=== PATIENT | female | born 1940 | race Caucasian/White ===

== ENCOUNTER → 2024-03-30 14:39 | Outpatient (REF) | payer MEDICARE, OTHER, SELFPAY ==
[2024-03-30 16:47] LABS: ALT (SGPT) 24 U/L (0-35); AST (SGOT) 23 U/L (14-36); Alkaline Phosphatase 77 U/L (38-126); Blood Urea Nitrogen 34 mg/dl (7-17); Calcium 9.4 mg/dl (8.4-10.2); Carbon Dioxide 29 mmol/L (22-30); Chloride 99 mmol/L (98-107); Glucose 137 mg/dl (70-99); HDL Cholesterol 44 mg/dl; LDL Cholesterol, Calculated 146 mg/dl; Potassium 4.7 mmol/L (3.5-5.1); Sodium 134 mmol/L (135-145); Total Bilirubin 0.7 mg/dl (0.2-1.3); Total Cholesterol 214 mg/dl (50-199); Total Protein 6.6 g/dl (6.3-8.2); Triglyceride 120 mg/dl (10-149); Very Low Density Lipoprotein 24 mg/dl (0-30); eGFR > 60.00
[2024-03-30 17:04] LABS: Free T3 3.09 pg/ml (2.77-5.27); Free T4 1.76 ng/dl (0.78-2.19)
[2024-03-30 17:17] LABS: TSH 0.19 uIU/ml (0.47-4.68)
[2024-03-30 17:52] LABS: Microalbumin, Random Urine < 0.6 mg/dl (0.6-1.7)
[2024-03-30 17:54] LABS: Folate > 20.0 ng/ml (2.76-20); Vitamin B12 924 pg/ml (239-931)
[2024-03-31 09:26] LABS: Glycohemoglobin (HgbA1c) 7.4 % (4.0-5.6)
[2024-04-01 18:11] LABS: Total T3 (Sendout) 78 ng/dL (80-200)
== END ==
LOC: REG 14:39
PROVIDERS: ATTENDING PHYSICIAN Family Medicine
DX: E11.9 Type 2 diabetes mellitus without complications (principal); E72.11 Homocystinuria; E78.2 Mixed hyperlipidemia; E89.0 Postprocedural hypothyroidism
CPT/HCPCS: 36415; 80053; 80061; 82043; 82570; 82607; 82746; 83036; 83525; 84439; 84443; 84480; 84481

== ENCOUNTER → 2024-05-03 14:21 | Outpatient (REF) | payer MEDICARE, OTHER, SELFPAY | LOC: RAD 14:21 | PROVIDERS: ATTENDING PHYSICIAN Family Medicine | DX: E72.11 Homocystinuria (principal); E78.2 Mixed hyperlipidemia; I48.0 Paroxysmal atrial fibrillation; I50.32 Chronic diastolic (congestive) heart failure | CPT/HCPCS: 75571 ==

== ENCOUNTER → 2024-08-08 12:24 | Outpatient (REF) | payer MEDICARE, OTHER, SELFPAY ==
[2024-08-08 13:22] LABS: % Basophils 0.8 % (0-2); % Eosinophils 2.1 % (0-6); % Immature Granulocytes 0.3 % (0-0.5); % Lymphocytes 27.2 % (20.5-51.1); % Monocytes 10.7 % (1.7-9.3); % Neutrophils 58.9 % (42.2-75.2); Absolute Eosinophils 0.1 10^3/uL (0-0.7); Absolute Monocytes 0.4 10^3/uL (0.1-0.6); Absolute Neutrophils 2.3 10^3/uL (1.4-6.5); Hematocrit 35.9 % (37.0-47.0); Hemoglobin 11.7 g/dL (12.0-16.0); Mean Corp Hgb Conc. 32.6 g/dL (33.0-37.0); Mean Corpuscular Hgb 31.1 pg (27.0-31.0); Mean Corpuscular Volume 95.5 fL (81.0-99.0); Mean Platelet Volume 10.2 fL (7.4-10.4); Nucleated Red Blood Cells % 0 %; Platelet Count 236 10^3/uL (130-400); Red Blood Cell Count 3.76 10^6/uL (4.20-5.40); Red Cell Dist. Width 13.3 % (11.5-14.5); White Blood Cell Count 3.8 10^3/uL (4.8-10.8)
[2024-08-08 13:51] LABS: ALT (SGPT) 22 U/L (0-35); AST (SGOT) 22 U/L (14-36); Albumin 4.3 g/dl (3.5-5.0); Alkaline Phosphatase 68 U/L (38-126); Blood Urea Nitrogen 31 mg/dl (7-17); Calcium 9.8 mg/dl (8.4-10.2); Carbon Dioxide 29 mmol/L (22-30); Chloride 96 mmol/L (98-107); Glucose 143 mg/dl (70-99); Potassium 4.5 mmol/L (3.5-5.1); Sodium 138 mmol/L (135-145); Total Bilirubin 0.7 mg/dl (0.2-1.3); Total Protein 7.1 g/dl (6.3-8.2); eGFR > 60.00
[2024-08-08 14:10] LABS: Free T3 2.97 pg/ml (2.77-5.27); Free T4 1.95 ng/dl (0.78-2.19)
[2024-08-08 14:36] LABS: Glycohemoglobin (HgbA1c) 7.7 % (4.0-5.6)
[2024-08-10 18:06] LABS: Insulin, Random 2 uIU/mL
== END ==
LOC: REG 12:24
PROVIDERS: ATTENDING PHYSICIAN Family Medicine; OTHER PHYSICIAN Internal Medicine Cardiovascular Disease; OTHER PHYSICIAN Nurse Practitioner Gerontology
DX: E11.9 Type 2 diabetes mellitus without complications (principal); E72.11 Homocystinuria; E89.0 Postprocedural hypothyroidism
CPT/HCPCS: 36415; 80053; 83036; 83090; 83525; 84439; 84443; 84480; 84481; 85025

== ENCOUNTER 2024-10-25 19:36 | Inpatient (IN) | payer MEDICARE, OTHER, SELFPAY ==
[2024-10-24] VITALS (7 sets, daily range): BP systolic 114–182; BP diastolic 73–95; BMI 23.0
[2024-10-24 12:33] LABS: Glucose - Point of Care 136 mg/dl (70-99)
[2024-10-24 12:57] LABS: % Basophils 0.9 % (0-2); % Eosinophils 1.8 % (0-6); % Immature Granulocytes 0.2 % (0-0.5); % Monocytes 12.1 % (1.7-9.3); Absolute Eosinophils 0.1 10^3/uL (0-0.7); Absolute Monocytes 0.6 10^3/uL (0.1-0.6); Absolute Neutrophils 2.9 10^3/uL (1.4-6.5); Hematocrit 38.6 % (37.0-47.0); Hemoglobin 12.4 g/dL (12.0-16.0); Mean Corp Hgb Conc. 32.1 g/dL (33.0-37.0); Mean Corpuscular Volume 96.5 fL (81.0-99.0); Mean Platelet Volume 9.8 fL (7.4-10.4); Nucleated Red Blood Cells % 0 %; Platelet Count 225 10^3/uL (130-400); Red Cell Dist. Width 13.2 % (11.5-14.5); White Blood Cell Count 4.5 10^3/uL (4.8-10.8)
[2024-10-24 13:14] LABS: ALT (SGPT) 33 U/L (0-35); AST (SGOT) 29 U/L (14-36); Albumin 4.2 g/dl (3.5-5.0); Alkaline Phosphatase 72 U/L (38-126); Blood Urea Nitrogen 18 mg/dl (7-17); Calcium 9.1 mg/dl (8.4-10.2); Carbon Dioxide 26 mmol/L (22-30); Chloride 102 mmol/L (98-107); Glucose 135 mg/dl (70-99); Potassium 4.1 mmol/L (3.5-5.1); Sodium 136 mmol/L (135-145); Total Bilirubin 0.7 mg/dl (0.2-1.3); eGFR > 60.00
--- NOTE | 2024-10-24 16:48 | ED.GENMED ---
History of Present Illness
<Elke Kemp PA-C - Last Filed: 10/25/24 01:50>
General
Chief Complaint: Change in Mental Status
Source: patient and family (Patient's daughter at bedside providing history)
Exam Limitations: altered mental status
Time Seen by Provider: 10/24/24 16:27
Nursing documentation reviewed up to this point in time: agreed with
History of Present Illness
History of Present Illness:
Patient is an 84-year-old female with history atrial fibrillation on Eliquis, CHF, hypertension, hyperlipidemia, diabetes presenting to the emergency department with daughter for evaluation of altered mental status. Patient is unable to contribute
much to history given altered mental status although does deny any current complaints including headache, chest pain, shortness of breath. Patient's daughter reports that she last saw her mom at her baseline on Thursday morning. By the time she
spoke to her mom on the phone Thursday her mom appeared altered. Patient's daughter states that she remained confused throughout the day yesterday and into today prompting the visit to the emergency department. Patient's daughter does think
that her mom may be urinating a little bit less than usual and is concerned about a possible UTI. She does not believe that her mom took her medications appropriately over the past few days
There is no known history of trauma or falls.
Patient does live in independent living and currently is able to perform all ADLs, IADLs without assistance.
Review of Systems
<Elke Kemp PA-C - Last Filed: 10/25/24 01:50>
Review of Systems
Allergies reviewed?: Yes
All Other Systems: ROS reviewed and negative except as documented in HPI and ROS
Phy Exam
<Elke Kemp PA-C - Last Filed: 10/25/24 01:50>
Physical Exam
Physical Exam:
Vitals: Hypertensive, otherwise stable vital signs. Afebrile
General: Patient is well appearing, no acute distress
Skin: Warm and dry, no rashes or lesions
Head: Normocephalic, atraumatic
Eyes: Sclera nonicteric. Pupils equal round and reactive light bilaterally. EOMs intact. No nystagmus.
Throat: Protecting airway
Neck: Normal ROM, no cervical spine tenderness, no meningismus
Cardiac: Regular rate and rhythm, no murmurs.
Pulm: Normal respiratory effort, no wheezes, rales, rhonchi heard on exam.
Abdomen: Abdomen soft no abdominal tenderness.
Extremities: No evidence of cyanosis or edema. Strength 5 out of 5 in upper and lower extremities.
Neuro: AAOx [address], not time. No focal neurologic deficits. Fluid speech. Steady gait. Sensation fully intact
Psychiatric: Normal affect.
Scores
<Elke Kemp PA-C - Last Filed: 10/25/24 01:50>
NIH Stroke Score
Level of Consciousness: 0 - Alert
LOC Questions: 1-Answers one correctly
LOC Commands: 0-Performs both correctly
Best Horizontal Gaze: 0-Normal
Visual Hogan: 0=Normal, no visual loss
Facial Palsy: 0=Normal, symmetrical
Motor - Right Arm: 0=No drift 10 seconds
Motor - Left Arm: 0=No drift 10 seconds
Motor - Right Le-No drift 5 seconds
Motor - Left Le-No drift 5 seconds
Limb Ataxia: 0-Absent
Sensation: 0-Normal
Best Language: 0-No aphasia
Dysarthria: 0-Normal
Extinction and Inattention: 0-No abnormality
Total Score:: 1
Course
<Elke Kemp PA-C - Last Filed: 10/25/24 01:50>
Orders/Labs/Results
Orders:
Orders
10/24/24 12:36
Complete Blood Count/With Diff Urgent
Comprehensive Metabolic Panel Urgent
10/24/24 16:49
Electrocardiogram (*1) Urgent
Reason for Study: Fatigue / Weakness
CT Head W/o Iv Contrast Urgent
Comment:
Reason For Exam: AMS on eliquis
EKG- Treatment ONCE
Straight cath- Treatment ONCE
10/24/24 17:09
COVID-19 Antigen Urgent
Source: Nasal Swab
NT-proBNP Urgent
Troponin I Urgent
Influenza A+B Rapid Molecular Urgent
QUOC Source: Nasal Swab
Specimen Description:
10/24/24 17:13
Urinalysis Reflex To Culture Urgent
Date Specimen was Collected: 10/24/24
Time Specimen was Collected: 12:33
10/24/24 19:56
Aspirin Chewable [Low Strength Aspirin] 81 mg PO NOW STA
10/24/24 21:06
Admit/Transfer Patient As Directed
Co-Sign Provider:
Level of Care: Observation services
Assign to:: Telemetry
Physician / Group: Deep Flor
Diagnosis: change in mental status
Reason for Telemetry: CVA/TIA
Date to Stop Telemetry: 10/27/24
Time to Stop Telemetry: 11:00
PRN Pain Medication Management As Directed
May give lesser potent ordered pain med per pt: Yes
preference::
Protocol:: Medication orders for pain may be administered in a
manner that supports deferring to patient preference
when the pt is:
- Requesting an ordered lesser potent pain medication.
Least to most potent pain medications are defined
as: acetaminophen < NSAID < tramadol < opioids
(morphine, oxycodone, hydromorphone).
- Requesting a lesser dose of the same medication IF
ORDERED.
- Requesting a less intrusive route of administration
if both routes are prescribed by the provider (PO <
IV).
10/24/24 21:07
Code Status As Directed
Resuscitation Status: Do not resuscitate
Based on pt advanced directive or healthcare POA form: Yes
Decision communicated with: daughter and patient
DNR Bracelet Application ONCE
10/24/24 22:40
Acetaminophen [Tylenol] 650 mg PO Q4HPRN PRN
10/24/24 22:40
Case Management Consult ONCE
Case Management Consult: Discharge Planning
Comment: stroke/tia
NEUROLOGY CONSULT Urgent
Consulting Provider: Griselda Hui
Was physician already notified: Yes
MR Brain Without Contrast Routine
Comment:
Reason For Exam: stroke/TIA
Recent pill cam endoscopy?: No
Activity As Directed
Activity Level: Out of Bed-Early Mobility
NIH Stroke Scale As Directed
Directions: Per protocol
Comment: every shift and with any change in condition or mental status
Neurological Checks As Directed
Frequency: q4h
Additional Instructions:: q4h x 24h upon admission to the floor, then qshift & with any change in condition
and mental status
Patient Education As Directed
Type: Stroke education packet
Comment: provide to patient and family
Pneumatic Compression Sleeves As Directed
Type: Knee high
Swallow Screening CVA/TIA ONLY As Directed
Comment: NPO until swallowing screening completed
If patient FAILS swallow screening:: NPO, Speech Therapy consult, Aspiration Precautions
If patient PASSES swallow screening, diet:: Cholesterol Lowering
Sodium, 2 Gram
Above diet order entered?: Yes- passed screening
Vital Signs As Directed
Frequency: Per unit guidelines
Weight As Directed
Frequency: Daily
Ot Eval And Treat Routine
Pt Eval And Treat Routine
Activity Level: Out of Bed-Early Mobility
Speech Therapy Eval & Treat Routine
DX Deep Vein Thrombosis Video Routine
10/24/24 23:41
Type+Screen Routine
Erythrocyte Sed Rate Routine
Glycohemoglobin (HgbA1c) Routine
10/25/24 06:00
Cardiovascular Evaluation IN AM
PTT IN AM
Prothrombin Time IN AM
Levothyroxine [Synthroid] 125 mcg PO DAILY @ 0600
10/25/24 08:00
Aspirin Chewable [Low Strength Aspirin] 81 mg PO DAILY
Bisoprolol Fumarate [Zebeta] 2.5 mg PO DAILY
Rosuvastatin Calcium [Crestor] 10 mg PO DAILY
10/25/24 18:00
Torsemide [Demadex] 20 mg PO QPM
10/27/24 11:00
DC Protocol for Telemetry ONCE
Abnormal Lab Results
10/24/24 10/24/24 10/24/24
12:30 12:36 17:13
WBC 4.5 L 10^3/uL
(4.8-10.8)
RBC 4.00 L 10^6/uL
(4.20-5.40)
MCHC 32.1 L g/dL
(33.0-37.0)
Absolute Lymphs (auto) 1.0 L 10^3/uL
(1.2-3.4)
Monocytes % 12.1 H %
(1.7-9.3)
BUN 18 H mg/dl
(7-17)
Glucose 135 H mg/dl
(70-99)
Urine Ketones Trace A
(Negative)
Urine Glucose 2+ A
(Negative)
POC Glucose 136 H mg/dl
(70-99)
10/24/24 12:36
10/24/24 12:36
Vital Signs
Initial and Last Documented VS:
Initial Vital Signs
Temp Pulse Resp BP Pulse Ox
98.1 F 88 16 160/80 98
10/24/24 12:24 10/24/24 12:24 10/24/24 12:24 10/24/24 12:24 10/24/24 12:24
Last Documented Vital Signs
Temp Pulse Resp BP Pulse Ox
98.1 F 74 13 143/76 92
10/24/24 12:24 10/25/24 01:00 10/25/24 01:00 10/25/24 01:00 10/25/24 01:00
<Ruy Stallworth MD - Last Filed: 10/24/24 21:11>
Orders/Labs/Results
Orders:
Orders
10/24/24 12:36
Complete Blood Count/With Diff Urgent
Comprehensive Metabolic Panel Urgent
10/24/24 16:49
Electrocardiogram (*1) Urgent
Reason for Study: Fatigue / Weakness
CT Head W/o Iv Contrast Urgent
Comment:
Reason For Exam: AMS on eliquis
EKG- Treatment ONCE
Straight cath- Treatment ONCE
10/24/24 17:09
COVID-19 Antigen Urgent
Source: Nasal Swab
NT-proBNP Urgent
Troponin I Urgent
Influenza A+B Rapid Molecular Urgent
QUOC Source: Nasal Swab
Specimen Description:
10/24/24 17:13
Urinalysis Reflex To Culture Urgent
Date Specimen was Collected: 10/24/24
Time Specimen was Collected: 12:33
10/24/24 19:56
Aspirin Chewable [Low Strength Aspirin] 81 mg PO NOW STA
10/24/24 21:06
Admit/Transfer Patient As Directed
Co-Sign Provider:
Level of Care: Observation services
Assign to:: Telemetry
Physician / Group: Deep Flor
Diagnosis: change in mental status
Reason for Telemetry: CVA/TIA
Date to Stop Telemetry: 10/27/24
Time to Stop Telemetry: 11:00
PRN Pain Medication Management As Directed
May give lesser potent ordered pain med per pt: Yes
preference::
Protocol:: Medication orders for pain may be administered in a
manner that supports deferring to patient preference
when the pt is:
- Requesting an ordered lesser potent pain medication.
Least to most potent pain medications are defined
as: acetaminophen < NSAID < tramadol < opioids
(morphine, oxycodone, hydromorphone).
- Requesting a lesser dose of the same medication IF
ORDERED.
- Requesting a less intrusive route of administration
if both routes are prescribed by the provider (PO <
IV).
10/24/24 21:07
Code Status As Directed
Resuscitation Status: Do not resuscitate
Based on pt advanced directive or healthcare POA form: Yes
Decision communicated with: daughter and patient
DNR Bracelet Application ONCE
10/24/24 22:40
Acetaminophen [Tylenol] 650 mg PO Q4HPRN PRN
10/24/24 22:40
Case Management Consult ONCE
Case Management Consult: Discharge Planning
Comment: stroke/tia
NEUROLOGY CONSULT Urgent
Consulting Provider: Griselda Hui
Was physician already notified: Yes
MR Brain Without Contrast Routine
Comment:
Reason For Exam: stroke/TIA
Recent pill cam endoscopy?: No
Activity As Directed
Activity Level: Out of Bed-Early Mobility
NIH Stroke Scale As Directed
Directions: Per protocol
Comment: every shift and with any change in condition or mental status
Neurological Checks As Directed
Frequency: q4h
Additional Instructions:: q4h x 24h upon admission to the floor, then qshift & with any change in condition
and mental status
Patient Education As Directed
Type: Stroke education packet
Comment: provide to patient and family
Pneumatic Compression Sleeves As Directed
Type: Knee high
Swallow Screening CVA/TIA ONLY As Directed
Comment: NPO until swallowing screening completed
If patient FAILS swallow screening:: NPO, Speech Therapy consult, Aspiration Precautions
If patient PASSES swallow screening, diet:: Cholesterol Lowering
Sodium, 2 Gram
Above diet order entered?: Yes- passed screening
Vital Signs As Directed
Frequency: Per unit guidelines
Weight As Directed
Frequency: Daily
Ot Eval And Treat Routine
Pt Eval And Treat Routine
Activity Level: Out of Bed-Early Mobility
Speech Therapy Eval & Treat Routine
DX Deep Vein Thrombosis Video Routine
10/24/24 23:41
Type+Screen Routine
Erythrocyte Sed Rate Routine
Glycohemoglobin (HgbA1c) Routine
10/25/24 06:00
Cardiovascular Evaluation IN AM
PTT IN AM
Prothrombin Time IN AM
Levothyroxine [Synthroid] 125 mcg PO DAILY @ 0600
10/25/24 08:00
Aspirin Chewable [Low Strength Aspirin] 81 mg PO DAILY
Bisoprolol Fumarate [Zebeta] 2.5 mg PO DAILY
Rosuvastatin Calcium [Crestor] 10 mg PO DAILY
10/25/24 18:00
Torsemide [Demadex] 20 mg PO QPM
10/27/24 11:00
DC Protocol for Telemetry ONCE
Abnormal Lab Results
10/24/24 10/24/24 10/24/24
12:30 12:36 17:13
WBC 4.5 L 10^3/uL
(4.8-10.8)
RBC 4.00 L 10^6/uL
(4.20-5.40)
MCHC 32.1 L g/dL
(33.0-37.0)
Absolute Lymphs (auto) 1.0 L 10^3/uL
(1.2-3.4)
Monocytes % 12.1 H %
(1.7-9.3)
BUN 18 H mg/dl
(7-17)
Glucose 135 H mg/dl
(70-99)
Urine Ketones Trace A
(Negative)
Urine Glucose 2+ A
(Negative)
POC Glucose 136 H mg/dl
(70-99)
10/24/24 12:36
10/24/24 12:36
Vital Signs
Initial and Last Documented VS:
Initial Vital Signs
Temp Pulse Resp BP Pulse Ox
98.1 F 88 16 160/80 98
10/24/24 12:24 10/24/24 12:24 10/24/24 12:24 10/24/24 12:24 10/24/24 12:24
Last Documented Vital Signs
Temp Pulse Resp BP Pulse Ox
98.1 F 74 13 143/76 92
10/24/24 12:24 10/25/24 01:00 10/25/24 01:00 10/25/24 01:00 10/25/24 01:00
<Elke Kemp PA-C - Last Filed: 10/25/24 01:50>
MDM/Problems Addressed
Differential Diagnosis Includes:
Not limited to: Viral illness, UTI, CVA, intra parenchymal hemorrhage, mass, etc.
MDM/Problems Addressed:
84-year-old female presenting with daughter for change in mental status which is suspected to have occurred sometime between Thursday afternoon and Thursday morning. No known trauma. Patient hypertensive on arrival, otherwise stable vital signs.
Physical exam as above. Patient is alert and oriented x 2. Patient clearly confused unable to identify her daughter. Cranial nerves intact. Patient has fluent speech and steady gait. Normal cerebellar exam. Basic labs initiated in triage
without clinically significant abnormalities. Differential broad at this time although concern for possible infectious source versus central process. Will check urinalysis, viral swabs. Will obtain CT head. Anticipate admission.
Update: Urinalysis without signs of infection. Viral swabs negative. EKG without any acute ischemic changes. CT scans does show areas of infarct, old versus subacute. Given acute mental status change�concern that these are subacute infarctions.
Did discuss with neurology who recommends holding Eliquis and giving baby aspirin. Patient will be admitted to hospitalist service for MRI/further evaluation of mental status change.
Chronic conditions affecting care:
Atrial fibrillation on Eliquis, CHF, hypertension
Acute Exacerbation and/or Progression of Chronic Illness:
Acutely hypertensive
<Elke Kemp PA-C - Last Filed: 10/25/24 01:50>
*Radiology
Radiology exam reviewed: radiology read reviewed
*Pulse Oximetry
Patient hypoxic: no
*EKG
Interpreted by ED Provider?: Yes
EKG Intrepretation Date: 10/24/24
Interpretation: normal
Comparison EKG: changes noted
Heart Rate: 82
Rate: normal
Rhythm: sinus
Dorr: normal axis
Interval: normal QT interval
QRS Pattern: normal QRS
Ischemia: no ischemia
*Sales Teacher Interpretation
Rate: normal
Interpretation: normal
Heart Rate: 72
Rhythm: sinus
*Critical Care Note
Total Time (30-74mins, 75-104mins- exclusive of procedures): Not Applicable
<Elke Kemp PA-C - Last Filed: 10/25/24 01:50>
Patient Management
Discussion with other providers: Hospitalist and Dump Worker
Escalation/DeEscalation of care consider admission/obs:
Admit for MRI/further evaluation
ED Attending Note
<Elke Kemp PA-C - Last Filed: 10/25/24 01:50>
-
Portions of this chart may have been created with voice recognition software.� Occasional wrong word or��sound alike� substitutions may have occurred due to the inherent limitations of voice recognition software.
<Ruy Stallworth MD - Last Filed: 10/24/24 21:11>
ED Attending Note
Patient seen and examined by attending physician: Yes
ED Attending Note:
I have seen and evaluated the patient with a [id number] encounter. I have spoken to the advance practicer provider and involved in the medical history, the physical exam, medical decision making.
Evaluation and management service: agree unless noted differently below.
Results interpretation: agree unless noted differently below.
Focused HPI: 84-year-old female with history as documented notable for A-fib, CHF, hypertension, hyperlipidemia, diabetes who presents to the emergency room with her daughter for evaluation of change in mental status. Daughter says that she last
saw her mother normal on he spoke to her on the phone and she seemed to be well. Apparently Thursday she spoke with her mother and noted that she seems confused and disoriented this morning she went to her mother's house and she was still
disoriented and brought her mother to the hospital. Patient is very confused and is very limited as a historian. She denies any pain and says that he feels generally well.
Physical exam: Awake, alert, oriented x 1. She does not appear toxic. Cranial nerves are intact. Motor and sensory function intact and symmetric in all extremities. Her speech is fluid there is no dysarthria or aphasia. She has no cardiac rubs
gallops or murmurs appreciable on exam, rate and rhythm appear regular. Lungs sound clear. Abdomen nontender.
Medical Decision Makin-year-old female presents with a change in mental status seems to have started Thursday although daughter says that she has a notebook from her mother which her mother uses to lock her medications and it is blank for
Thursday evening which indicates that perhaps they may have started Thursday afternoon/evening. Hypertensive otherwise normal vitals. Physical exam as above. Labs were sent off including a CBC and a CMP which showed no clinically significant
abnormalities. Her urinalysis is negative for infection. Negative for COVID and flu. CT head shows infarct which could be old or subacute. Will treat with aspirin, admit for continued evaluation of her mental status changes.
Discharge Plan
Departure
Patient Disposition: Admit
Date of Disposition: 10/24/24
Time of Disposition: 19:57
Presentation/result/management discussed w/ accepting MD/DO: Hospitalist
Discharge Problem:
Altered mental status
Interventions
Interventions:
*Risk Screen - Suicide Last Done: 10/24/24 12:24
*General Assessment Last Done: 10/24/24 23:34
*Neglect/Abuse Screening Last Done: 10/24/24 12:24
*ED COVID-19 Vaccine History Last Done: 10/24/24 23:34
ED- Pulmonary Assessment Last Done: 10/24/24 17:15
ED- Neurological Assessment Last Done: 10/24/24 17:15
ED- Cardiac Assessment Last Done: 10/24/24 17:15
ED Swallowing Screen Last Done: 10/24/24 19:45
[2024-10-24 17:25] LABS: Urine Albumin Trace (Neg - Trace); Urine Bilirubin Negative (Negative); Urine Character Clear (Clear); Urine Color Yellow; Urine Glucose 2+ (Negative); Urine Ketone Trace (Negative); Urine Leukocyte Negative (Negative); Urine Nitrite Negative (Negative); Urine Occult Blood Negative (Negative); Urine Urobilinogen Negative (Neg - 1+)
[2024-10-24 17:53] LABS: NT-proBNP 2430 pg/ml; Troponin I 0.013 ng/ml
[2024-10-24 17:59] LABS: COVID-19 Antigen Negative (Negative)
[2024-10-24] MEDS: LOW STRENGTH ASPIRIN 81 MG PO (19:59)
--- NOTE | 2024-10-24 20:08 | HPS.HSE ---
Addendum entered and electronically signed by Deep Flor DO 10/24/24 22:06:
Patient seen and examined independently. Agree with findings and plan as set forth by ALFONSO Limon.
Patient is an 84y F with PMH significant for A-Fib, hypertension and hypothyroidism who presents to ED for evaluation of mental status change. Patient was in her usual state of health on Thursday when her daughter was in town. Daughter spoke
with the patient via phone since that time an found her to be confused. She returned to [facility] today to evaluate the patient and found her to be significantly altered from baseline. Patient keeps a weight diary at home and there is a distinct change
in hand-writing that occurs on Thursday. On Thursday there are no entries.
Patient was brought to the ED this evening for further evaluation.
CVT scan done in the ED shows multiple areas of decreased density consistent with old or subacute CVAs.
Ass:
Altered Mental Status
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
Paroxysmal Atrial Fibrillation
Benign Hypertension
DM-II
Chronic HFpEF
Hypothyroidism
Plan:
Admit for further evaluation and treatment.
Follow serial neurologic exams.
Add ASA to Eliquis for now and check MRI in the AM.
Neurology evaluation for additional recommendations.
Hold oral DM agents acutely and follow glucose. Update A1C.
Monitor BP and adjust regimen as needed for normotension.
Follow for clinical improvement.
Original Note:
Family Physician
-
Family Physician: Luis Miguel Mejia
Chief Complaint
-
change in mental status
History of Present Illness
Patient is a 84-year-old female with past medical history significant for atrial fibrillation, hypertension, hyperlipidemia, hypothyroidism, diabetes and heart failure who presented to [place] [facility] for evaluation of change in mental status. Patient
and daughter present at assessment, daughter who is a nurse helped with HPI. Patient denies any symptoms at this time or any recently, she is pleasant with no complaints. Daughter states she spent the night with patient on Thursday and left Thursday
to head home in [place]. Daughter states patient is normally very feisty and snarky and her current calm demeanor is new. Patient has a book that she writes her daily weight and time she took her medications, which looks verify uniform for days until
Thursday evening the handwriting worsens and the documentation is limited, no entry on Thursday. Daughter states on Thursday they had talked on phone and her mother was not wearing underwear, reporting she could not find them, and over the phone she
instructed where they were but her mom could still not find them. She spoke with her on Thursday and confusion continued so she returned to the area to bring her for evaluation of potential UTI. She took patient to urgent care where they referred to
ED for continued mental status change and patients inability to provide a urine sample. Patient denies any recent fever, chills, cough, shortness of breath, chest pain, nausea, vomiting, constipation, diarrhea or urinary symptoms.
Medical History
Past Medical History
Past Medical History: Reports Other
Additional Past Medical History:
atrial fibrillation
hypertension
hyperlipidemia
hypothyroidism
diabetes
heart failure
Past Surgical History: Reports Other
Additional Past Surgical History:
right hip replacement
arthroscopic surgery bilateral knees
left breast lumpectomy
thyroid radiation
Social History
Tobacco: Non-smoker
Alcohol: Occasional
Drug: None
Personal:
Living: Alone
Employment: Retired
Family History
Family History: Other (Mother: Alzheimer's; Father: CAD; Sister: DM I)
Allergies / Home Medications
Allergies reflects when Allergies were last updated in [facility].
Home Medications with original date entered in [facility]
Allergy/Medication List:
Allergies
Allergy/AdvReac Type Severity Reaction Status Date / Time
clindamycin AdvReac Unknown Unknown Verified 10/24/24 12:24
Home Medications
apixaban 5 mg tablet (Eliquis) 5 mg PO BID 12/19/21
levothyroxine 125 mcg tablet 125 mcg PO DAILY 12/19/21
metformin 500 mg tablet,extended release 24 hr 2,000 mg PO DAILY 12/19/21
torsemide 20 mg tablet 20 mg PO QPM 01/01/22
bisoprolol fumarate 5 mg tablet 2.5 mg PO DAILY 10/24/24
empagliflozin 10 mg tablet (Jardiance) 10 mg PO DAILY 10/24/24
rosuvastatin 10 mg tablet (Crestor) 10 mg PO DAILY 10/24/24
Review of Systems
-
History Source: Patient
Constitutional: Reports No Symptoms
EENT: Reports No Symptoms
Respiratory: Reports No Symptoms
Cardiac: Reports No Symptoms
Abdomen/GI: Reports No Symptoms
: Reports No Symptoms
Musculoskeletal: Reports No Symptoms
Skin: Reports No Symptoms
Neurological: Reports No Symptoms
Endocrine: Reports No Symptoms
Hematologic/Lymphatic: Reports No Symptoms
Psych: Reports No Symptoms
Physical Exam
Vital Signs
Vital Signs
Temp Pulse Resp BP Pulse Ox
98.1 F 77 16 182/91 95
10/24/24 12:24 10/24/24 19:30 10/24/24 19:30 10/24/24 19:01 10/24/24 19:30
Physical Exam
General: Well Developed, Well Nourished, No Apparent Distress, Comfortable and Conversant
HEENT: NormoCephalic, Moist mucous membranes, Atraumatic, [place] Conjunctivae, Nose Appears Normal and Ears Appear Normal
Respiratory: Clear and Non Labored Respirations
Cardiac: S1/S2 and Regular Rhythm; No Murmur, Rub or Gallop
Breast: Deferred by me
GI: Soft, Non Tender, Non Distended and Normal Bowel Sounds; No Organomegaly
Rectal: Deferred by Provider
Genito-urinary: Deferred by me
Musculoskeletal: No Clubbing, No Cyanosis and No Edema
Skin: Warm and IV/Catheter Site; No Rash
Neuro: Awake, Alert and Nonfocal/grossly intact
Psych: Calm and Confused
Laboratory Results
-
10/24/24 12:36
10/24/24 12:36
Laboratory Results
Total Bilirubin 0.7 mg/dl (0.2-1.3) 10/24/24 12:36
AST 29 U/L (14-36) 10/24/24 12:36
ALT 33 U/L (0-35) 10/24/24 12:36
Alkaline Phosphatase 72 U/L (38-126) 10/24/24 12:36
Troponin I 0.013 ng/ml 10/24/24 17:09
Data Reviewed
-
CT Scan: Report Reviewed by me (Head: Focal areas of decreased density as described, most suggestive of old areas of infarction. With no comparison examination available, subacute areas of infarction not completely excluded. If there is high
clinical concern for acute to subacute infarction and further imaging evaluation is desire)
Medical Tests (Nuc Med, Echo, EKG etc): Report Reviewed by me (EKG: SINUS RHYTHM WITH PREMATURE SUPRAVENTRICULAR COMPLEXES OTHERWISE NORMAL ECG)
Lab Data: Labs Reviewed by me
Impression/Plan
-
IMPRESSION/PLAN:
#change in mental status
UA: negative for UTI
Head CT: Focal areas of decreased density as described, most suggestive of old areas of infarction. With no comparison examination available, subacute areas of infarction not completely excluded. If there is high clinical concern for acute to
subacute
infarction and further imaging evaluation is desired, consider MRI the brain, if there are no contraindications.
No evidence for acute intracranial hemorrhage.
- Admit to telemetry
- consult neurology
- NIH/neuro checks
- MRI in morning
#atrial fibrillation
- monitor on telemetry
- hold Eliquis
#hypertension
- continue torsemide
#hyperlipidemia
- continue rosuvastatin
#hypothyroidism
- continue levothyroxine
#diabetes
- continue Jardiance and metformin
#heart failure
- daily weights
- continue torsemide
Code status: DNR
DVT prophylaxis: SCDs
[2024-10-24 23:57] LABS: Erythrocyte Sed Rate 20 mm/hour (0-20)
[2024-10-25] VITALS (24 sets, daily range): BP systolic 120–189; BP diastolic 67–151; PULSE 68–73; O2SAT 98–100; BMI 20.7
[2024-10-25] MEDS: SYNTHROID 125 MCG PO (05:53)
[2024-10-25 06:47] LABS: INR 0.95
[2024-10-25 06:58] LABS: HDL Cholesterol 46 mg/dl; LDL Cholesterol, Calculated 94 mg/dl; Total Cholesterol 165 mg/dl (50-199); Triglyceride 127 mg/dl (10-149); Very Low Density Lipoprotein 25 mg/dl (0-30)
--- NOTE | 2024-10-25 07:23 | CON.NEURO ---
Consultation
Order
Date of Consultation: 10/25/24
Requesting Provider: Asya Mi CRNP
Reason for Consult: encephalopathy
Neurology Consultation Note.
HPI: This is an 84-year-old right-handed woman who presented to [facility] ([place], [place]) on 10/24/2024 with encephalopathy. According to patient's daughter Ms. Alanna Quispe who resides in [place], she noted her mother to be confused during their
regular phone conversation on 10/23/2024. Last time her mother seemed to be in usual state of health[facility], October [facility], 2024 morning.
The patient is unable to provide the history. She denies having headache, change in vision, weakness or numbness.
Ms. Virgen has a history of atrial fibrillation and was Eliquis prior the admission. She reportedly occasionally forgot to take her medications, but maintained a meticulous record of her medication administration. Prior to this episode, the
patient was independent, managing her own finances and driving locally. Notably, the patient is not currently complaining of her usual back and joint pain.
ER VS:160/80-189/83, 84, afebrile
PDMP:none
Labs: LDL 94, unremarkable urinalysis
CT head wo contrast-left thalamic hypodensity, atrophy.
PMH: A-Fib, HTN, PSVT, DLP, DM, h/o hyperthyroidism(s/p RT), hypothyroidism, OA, Varicose veins of bilateral lower extremities, gout
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
FH:mother-AD in her late 90s
All:Clindamycin
ROS:limited due to aphasia
General: Well developed. In no acute distress.
Cardio: Regular rate and rhythm without murmur. Extremities are without cyanosis or edema.
Neuro:
Mental Status: Alert, oriented to name, age. Expressive greater than receptive aphasia. Follows simple requests. Impaired attention, comprehension, calculation
Cranial Nerves: Pupils are equally round, surgical.. EOMs full. Blink to threat bilaterally. No ptosis. No nystagmus. V1-V3 intact to light touch and pinprick bilaterally, symmetric. Face symmetric. Normal hearing AU. The palate elevated
well. SCMs and traps 5/5. Tongue midline. No dysarthria.
Motor: No pronator or leg drift.
Reflexes: Negative Pritchett's and plus bilaterally
Sensory: Limited exam due to poor attention
Coordination: No dysmetria or tremor.
Gait: deferred
Assessment and Plan:
I. Probable left subacute thalamic stroke with thalamic aphasia.
II. Mixed encephalopathy
III. Paroxysmal A-fib
-Continue Telemetry monitoring
-Restart antihypertensive medications during if BP>140/90 mmHg who are neurologically stable in 24 to 48 hours after stroke onset
-TTE
-Please check TFTs
-Continue aspirin 81 mg once a day. Continue to hold Eliquis until brain MRI is completed. .
-Lipitor 40 mg QHS.
-Please check HbA1C
-CTA head and neck
-Routine EEG if brain MRI showed no acute or subacute infarct
-Speech therapy
-PT.
-DVT prophylaxis.
I personally reviewed all radiology and labs along with past medical records pertinent to current medical problems. Total time spent in patient care is 60 minutes.
Thank you for allowing us to participate in the care of this patient. We will continue to follow. Please do not hesitate to contact us with any questions or concerns.
Subjective/Objective
Subjective Data
Date of Service: October 25, 2024
Objective Data
Vital Signs
Temp Pulse Resp BP Pulse Ox
36.7 C 82 29 189/83 98
10/24/24 12:24 10/25/24 06:45 10/25/24 06:45 10/25/24 06:05 10/25/24 06:30
Lab Results
10/24/24 12:36
10/24/24 12:36
Sodium 136 mmol/L (135-145) 10/24/24 12:36
Potassium 4.1 mmol/L (3.5-5.1) 10/24/24 12:36
BUN 18 mg/dl (7-17) H 10/24/24 12:36
Glucose 135 mg/dl (70-99) H 10/24/24 12:36
Calcium 9.1 mg/dl (8.4-10.2) 10/24/24 12:36
Ljq-O-Ybcpbcgodjf Pept 2430 pg/ml 10/24/24 17:09
LDL Cholesterol, Calc 94 mg/dl 10/25/24 05:56
Patient Allergies
clindamycin Allergy (Verified 10/24/24 21:47)
CDIFF
Medications
-
Active Medications
Generic Name Dose Route Start Last Admin
Trade Name Freq PRN Reason Stop Dose Admin
Acetaminophen 650 mg 10/24/24 22:40
Acetaminophen 325 Mg Tablet PO 11/21/24 22:39
Q4HPRN PRN
RODRIGUEZ, mild pain, or temp >100.4F
Apixaban 5 mg 10/25/24 08:00
Apixaban (Eliquis) 5 Mg Tablet PO 11/22/24 07:59
BID SARAH
Aspirin 81 mg 10/25/24 08:00
Aspirin 81 Mg Chewable Tablet PO 11/22/24 07:59
DAILY SARAH
Bisoprolol Fumarate 2.5 mg 10/25/24 08:00
Bisoprolol Fumarate (Zebeta) 5 Mg Tablet PO 11/22/24 07:59
DAILY SARAH
Dextrose 12.5 grams 10/24/24 22:40
Dextrose 50% (0.5 Grams/Ml) 50 Ml Syringe IV 11/21/24 22:39
[id number] PRN
hypoglycemia
Protocol
Glucagon 1 mg 10/24/24 22:40
Glucagon 1 Mg Vial IM 11/21/24 22:39
PRN PRN
hypoglycemia
Protocol
Hydralazine HCl 5 mg 10/25/24 06:27
Hydralazine 20 Mg/Ml Vial IV 11/22/24 06:26
Q4HPRN PRN
sbp>170
Insulin Aspart 0 units 10/25/24 07:30
Insulin Aspart Low Resistance 300 Units/3 Ml Pen.Injctr SC 11/22/24 07:29
AC SARAH
Protocol
Levothyroxine Sodium 125 mcg 10/25/24 06:00 10/25/24 05:53
Levothyroxine 125 Mcg Tablet PO 11/22/24 05:59 125 mcg
DAILY @ 0600 SARAH Administration
Rosuvastatin Calcium 10 mg 10/25/24 08:00
Rosuvastatin (Crestor) 10 Mg Tablet PO 11/22/24 07:59
DAILY SARAH
Sodium Chloride 0 flush 10/24/24 23:00
Sodium Chloride 0.9% (Flush) Syringe IV 11/21/24 22:59
PER PROTOCOL SARAH
Torsemide 20 mg 10/25/24 18:00
Torsemide 20 Mg Tablet PO 11/22/24 17:59
QPM SARAH
Home Medications
�Medication �Instructions �Recorded
apixaban 5 mg tablet (Eliquis) 5 mg PO BID 12/19/21
levothyroxine 125 mcg tablet 125 mcg PO DAILY 12/19/21
metformin 500 mg tablet,extended 2,000 mg PO DAILY 12/19/21
release 24 hr
torsemide 20 mg tablet 20 mg PO QPM 01/01/22
bisoprolol fumarate 5 mg tablet 2.5 mg PO DAILY 10/24/24
empagliflozin 10 mg tablet 10 mg PO DAILY 10/24/24
(Jardiance)
rosuvastatin 10 mg tablet (Crestor) 10 mg PO DAILY 10/24/24
Vital Signs and Labs
-
Vital Signs and Labs:
Vital Signs
Temp Pulse Resp BP Pulse Ox
36.4 C 84 22 163/89 100
10/25/24 08:27 10/25/24 10:06 10/25/24 10:06 10/25/24 10:06 10/25/24 10:06
Lab Results
10/24/24 12:36
10/24/24 12:36
PT 13.0 Sec (11.4-14.6) 10/25/24 05:56
INR 0.95 10/25/24 05:56
APTT 23.4 Sec (23.4-35.0) 10/25/24 05:56
Sodium 136 mmol/L (135-145) 10/24/24 12:36
Potassium 4.1 mmol/L (3.5-5.1) 10/24/24 12:36
BUN 18 mg/dl (7-17) H 10/24/24 12:36
Glucose 135 mg/dl (70-99) H 10/24/24 12:36
Calcium 9.1 mg/dl (8.4-10.2) 10/24/24 12:36
Ylw-Z-Fnnmkqmfqvq Pept 2430 pg/ml 10/24/24 17:09
LDL Cholesterol, Calc 94 mg/dl 10/25/24 05:56
Medications
-
Medications:
Generic Name Dose Route Start Last Admin
Trade Name Freq PRN Reason Stop Dose Admin
Acetaminophen 650 mg 10/24/24 22:40
Acetaminophen 325 Mg Tablet PO 11/21/24 22:39
Q4HPRN PRN
RODRIGUEZ, mild pain, or temp >100.4F
Apixaban 5 mg 10/25/24 08:00 10/25/24 08:16
Apixaban (Eliquis) 5 Mg Tablet PO 11/22/24 07:59 5 mg
BID SARAH Administration
Aspirin 81 mg 10/25/24 08:00 10/25/24 08:16
Aspirin 81 Mg Chewable Tablet PO 11/22/24 07:59 81 mg
DAILY SARAH Administration
Bisoprolol Fumarate 2.5 mg 10/25/24 08:00 10/25/24 08:09
Bisoprolol Fumarate (Zebeta) 5 Mg Tablet PO 11/22/24 07:59 2.5 mg
DAILY SARAH Administration
Dextrose 12.5 grams 10/24/24 22:40
Dextrose 50% (0.5 Grams/Ml) 50 Ml Syringe IV 11/21/24 22:39
[id number] PRN
hypoglycemia
Protocol
Glucagon 1 mg 10/24/24 22:40
Glucagon 1 Mg Vial IM 11/21/24 22:39
PRN PRN
hypoglycemia
Protocol
Hydralazine HCl 5 mg 10/25/24 06:27 10/25/24 09:27
Hydralazine 20 Mg/Ml Vial IV 11/22/24 06:26 5 mg
Q4HPRN PRN Administration
sbp>170
Insulin Aspart 0 units 10/25/24 07:30 10/25/24 08:16
Insulin Aspart Low Resistance 300 Units/3 Ml Pen.Injctr SC 11/22/24 07:29 Not Given
AC SARAH
Protocol
Levothyroxine Sodium 125 mcg 10/25/24 06:00 10/25/24 05:53
Levothyroxine 125 Mcg Tablet PO 11/22/24 05:59 125 mcg
DAILY @ 0600 SARAH Administration
Rosuvastatin Calcium 10 mg 10/25/24 08:00 10/25/24 08:16
Rosuvastatin (Crestor) 10 Mg Tablet PO 11/22/24 07:59 10 mg
DAILY SARAH Administration
Sodium Chloride 0 flush 10/24/24 23:00
Sodium Chloride 0.9% (Flush) Syringe IV 11/21/24 22:59
PER PROTOCOL SARAH
Torsemide 20 mg 10/25/24 18:00
Torsemide 20 Mg Tablet PO 11/22/24 17:59
QPM SARAH
Home Medications
-
Home Medications
apixaban 5 mg tablet (Eliquis) 5 mg PO BID 12/19/21
levothyroxine 125 mcg tablet 125 mcg PO DAILY 12/19/21
metformin 500 mg tablet,extended release 24 hr 2,000 mg PO DAILY 12/19/21
torsemide 20 mg tablet 20 mg PO QPM 01/01/22
bisoprolol fumarate 5 mg tablet 2.5 mg PO DAILY 10/24/24
empagliflozin 10 mg tablet (Jardiance) 10 mg PO DAILY 10/24/24
rosuvastatin 10 mg tablet (Crestor) 10 mg PO DAILY 10/24/24
[2024-10-25 07:39] LABS: APTT 23.4 Sec (23.4-35.0)
[2024-10-25] MEDS: ZEBETA 2.5 MG PO (08:09)
[2024-10-25 08:15] LABS: Glucose - Point of Care 128 mg/dl (70-99)
[2024-10-25] MEDS: CRESTOR 10 MG PO (08:16)
[2024-10-25] MEDS: NOVOLOG FLEXPEN-LOW RESISTANCE SC ×3 (08:16→17:46)
[2024-10-25] MEDS: ELIQUIS 5 MG PO (08:16)
[2024-10-25] MEDS: LOW STRENGTH ASPIRIN 81 MG PO (08:16)
--- NOTE | 2024-10-25 08:22 | EDRN ---
the pt was received from previous shift coordinator nurse Reg KING, the pt is resting in stretcher in the lowest position, side rails up x2, call stephens within reach, HOB elevated, the pt knows her name and date of however the pt needed to be
reoriented to where she was and the year it was and the month it was, the pt has no c/o chest pain, no c/o SOB, no c/o headache, VS WNL however the pts blood pressure was elevated, this AM, the pt passed swallow screen and the pt was able to take PO
medications with no issues, NIH was performed and the pts scored a 1 due to the pt being confused, the pt was reoriented and educated on the call stephens and the pt verbally stated that she understood, the pts brief is dry and the pt states that she is
comfortable, blood sugar checked and no insulin coverage will be required when the pts breakfast comes, will continue to monitor the pt closely
--- NOTE | 2024-10-25 08:45 | EDRN ---
this RN noticed that the pt was off of the engine monitor, and Sp02 monitor, this RN entered the pts room and found the pt in the bathroom sitting on the toilet with her gown off, this RN asked the pt if she was okay and the pt stated, 'Yes i just
needed to go to the bathroom to pee', this RN assisted the pt back to the stretcher when she was done going to the bathroom and placed the pt back on the engine monitor, Sp02 monitor, and BP cuff, this RN educated the pt about the use of the call
stephens if she needs something or needs to go to the bathroom and the pt verbally stated that she understood, the pt did ambulate without difficulty, no c/o lightheadedness, no c/o dizziness, will continue to monitor the pt closely
[2024-10-25] MEDS: APRESOLINE 5 MG IV (09:27)
--- NOTE | 2024-10-25 09:30 | EDRN ---
PRN IV Hydralazine administered to the pt
--- NOTE | 2024-10-25 09:48 | EDRN ---
speech therapy currently at the pts bedside
--- NOTE | 2024-10-25 09:50 | EDRN ---
Dr. Gutierrez currently at the pts bedside
--- NOTE | 2024-10-25 11:00 | EDRN ---
this RN entered the pts room and asked the pt if she needed to go to the bathroom and the pt stated, 'No but i need to be changed i had an accident', this RN cleaned the pt with soap and water and placed a new brief and a new pad, will continue to
monitor the pt closely
--- NOTE | 2024-10-25 11:00 | EDRN ---
stroke packet provided for the pt and the pts family
--- NOTE | 2024-10-25 11:05 | PTOTSP ---
ST Acute Care Evaluations
Pt presents with clinical signs of possible slight pharyngeal dysphagia as evidenced by very seldom delayed onset of throat clearing after ingestion of thin liquids via straw.
Pt also exhibits acute onset of moderate receptive, expressive, and cognitive linguistic deficits. Per the QAB, pt presents with repetition and reading skills that are intact. Pt demonstrates mild motor speech deficits, mild grammatical construction
deficits, mild word comprehension deficits, severe sentence comprehension deficits, and severe word-finding deficits.
Recommendations:
- Initiate PO diet of regular solids, thin liquids, meds as tolerated.
- Aspiration precautions: Pt must be fully awake, alert, and upright for all PO intake; small bites/sips; alternate bites/sips; if pt is presenting with a wet vocal quality or persistent throat clearing, encourage her to cough hard and then swallow
hard.
- ELECTRONICS WARFARE TECHNICIAN to f/u re: diet tolerance, use of compensatory strategies, and to determine if she would benefit from an instrumental swallow study.
- ELECTRONICS WARFARE TECHNICIAN to f/u to provide tx for newly acquired receptive language, expressive language, and cognitive communication deficits.
- Pt would benefit from continued ELECTRONICS WARFARE TECHNICIAN services upon d/c at the acute rehab level of care.
--- NOTE | 2024-10-25 11:05 | W.PN.HOSP.TC ---
Addendum entered and electronically signed by Fransisco Gutierrez MD 10/25/24 11:08:
BARMAN exam-confused, no pronator drift, no facial droop, normal sensory and motor exam.
Original Note:
Today's Communication/Plan
-
Chest x-ray
MRI
PT OT and speech eval
Assessment / Plan
Assessment / Plan
84-year-old female with mental status change. Daughter was with pt Thursday and Thursday until Thursday
Patient was fine per daughter. She got confused after that. No fevers. Daughter does endorse that patient at times forgets to take the Eliquis.
Head CT-focal areas of decreased density suggestive of old areas of infarction. Subacute not completely excluded.
CVS: S1-S2 normal
Chest: rales right base
Abdomen: Soft, NT / Bowel sounds present
Extremities: No edema, normal pulses
BARMAN: Very confused. She is aware that she is at [facility] but does not know the month or year.
# Change in mental status/TME
Urine analysis negative for UTI
Continue on telemetry
Check CXR rales right base
NIH/neurochecks
MRI as the patient forgets to take Eliquis at times
Neurology evaluation
# Atrial fibrillation
History of ablations in the past
Monitor on telemetry
Holding Eliquis with suspicion for acute stroke
# Hypertension-continue Bisoprolol, as needed hydralazine
# Hyperlipidemia-continue Rosuvastatin
# Hypothyroidism-continue Synthroid
History of radiation
# Diabetes-Jardiance and metformin
Accu-Cheks with sliding scale coverage
# Heart failure-chronic HFpEF
Card- Dr. Zehra Davison
Daily weights
Continue Torsemide, Bisoprolol, Jardiance
# Mild MR and TR
# History of SVT
# History of Kawasaki's disease
# DVT prophylaxis-SCDs
# DNR
Discussed with nursing
Spoke to patient's daughter and updated on the phone.
Anticipated Discharge: 24 - 48 hours
Subjective/Interval History
-
Date of Service: October 25, 2024
Objective Data
-
Labs:
Laboratory Results
10/25/24
05:56
PT 13.0
INR 0.95
APTT 23.4
Vital Signs:
Vital Signs
Temp Pulse Resp BP Pulse Ox
97.6 F 84 22 163/89 100
10/25/24 08:27 10/25/24 10:06 10/25/24 10:06 10/25/24 10:06 10/25/24 10:06
--- NOTE | 2024-10-25 11:20 | EDRN ---
this RN called the receiving unit and gave verbal report to the receiving nurse
[2024-10-25 11:32] LABS: Glycohemoglobin (HgbA1c) 7.3 % (4.0-5.6)
--- NOTE | 2024-10-25 11:47 | EDRN ---
the PCT Marianela entered the pts room to start getting the pt ready to take the pt up to the floor and the pts daughter stated to the PCT that she wanted to speak to this RN immediately, this RN entered the pts room and the pts daughter approached
this RN and stated to this RN with her finger pointing in this RN's face, 'I was just told that my mother was still admitted under observation status and i want that changed immediately, you need to admit her under an actual diagnosis, i am not
going to keep her here if her status is not changed, this is ridiculous she is here for a stroke and she needs to be here, i want you to tell the doctor to change it right now!', this RN apologized to the pts daughter and stated that this RN would
reach out to the provider Dr. Gutierrez
--- NOTE | 2024-10-25 11:49 | EDRN ---
case management currently at the pts bedside speaking with the pts daughter, this RN reached out to Dr. Gutierrez regarding the pts observation status, awaiting to hear a response
--- NOTE | 2024-10-25 11:56 | EDRN ---
Dr. Gutierrez got back to this RN and stated that ' if MRI comes back positive or if mental status changes continue , and pt stays tonight , you can upgrade', this RN notified the receiving 4th floor RN
[2024-10-25 12:23] LABS: Glucose - Point of Care 125 mg/dl (70-99)
[2024-10-25 12:50] LABS: Vitamin B12 858 pg/ml (239-931)
--- NOTE | 2024-10-25 12:57 | CM ---
export traffic department manager reviewed patient's chart and met with patient and daughter, Alanna (who lives in [place]) at bedside, patient resides in independent living at [facility], patient was independent with adl's and used a walking cane with
ambulation. Per daughter patient may require skilled placement and rn field case manager will need to send a referral to [facility] [phone], when patient had been evaluated by PT/OT.
PCP: Dr. Luis Miguel Mejia
Pharmacy: [facility].
Plan; Await PT/OT evaluations.
[2024-10-25] MEDS: DEMADEX 20 MG PO (17:12)
[2024-10-25 17:43] LABS: Glucose - Point of Care 110 mg/dl (70-99)
[2024-10-25 21:20] LABS: Glucose - Point of Care 239 mg/dl (70-99)
[2024-10-26] VITALS (7 sets, daily range): BP systolic 113–144; BP diastolic 56–75; PULSE 83; O2SAT 94; BMI 20.5
[2024-10-26] MEDS: SYNTHROID 125 MCG PO (04:32)
[2024-10-26 07:33] LABS: Hematocrit 39.1 % (37.0-47.0); Hemoglobin 12.8 g/dL (12.0-16.0); Mean Corp Hgb Conc. 32.7 g/dL (33.0-37.0); Mean Corpuscular Hgb 31.3 pg (27.0-31.0); Mean Corpuscular Volume 95.6 fL (81.0-99.0); Mean Platelet Volume 10.3 fL (7.4-10.4); Platelet Count 221 10^3/uL (130-400); Red Blood Cell Count 4.09 10^6/uL (4.20-5.40); Red Cell Dist. Width 13.3 % (11.5-14.5); White Blood Cell Count 3.9 10^3/uL (4.8-10.8)
[2024-10-26 07:35] LABS: Glucose - Point of Care 154 mg/dl (70-99)
[2024-10-26 07:50] LABS: Blood Urea Nitrogen 27 mg/dl (7-17); Calcium 9.6 mg/dl (8.4-10.2); Carbon Dioxide 27 mmol/L (22-30); Chloride 102 mmol/L (98-107); Estimated Creatinine Clearance 41 ml/min; Glucose 155 mg/dl (70-99); Potassium 4.2 mmol/L (3.5-5.1); Sodium 139 mmol/L (135-145)
[2024-10-26 08:20] LABS: TSH Reflex To Free T4 0.64 uIU/ml (0.47-4.68)
--- NOTE | 2024-10-26 09:47 | CM ---
Patient has switched to inpatient and IMM provided to patient and signed by daughter POA, patient and daughter are interested in [facility] if rehab is recommended, assigned case loader operator made aware.
Plan; Await PT/OT evaluations and recommendations.
[2024-10-26] MEDS: LOW STRENGTH ASPIRIN 81 MG PO (09:53)
[2024-10-26] MEDS: ZEBETA 2.5 MG PO (09:53)
--- NOTE | 2024-10-26 10:02 | CON.VAS ---
Consultation
Consultation Request
Performing Provider: Mihai
Reason for Consultation: Carotid stenosis
Medical History
-
Chief Complaint: Confusion
History of Present Illness:
84-year-old female with past medical history atrial fibrillation, hypertension, hyperlipidemia, hypothyroidism, diabetes , heart failure. Pt has no prior history of strokes who on this past Thursday (4 days ago) was visited by her daughter from
[place] and was doing okay. When her daughter went home she tried calling her that evening per her norm, and patient did not answer. Next morning she spoke to the patient, but patient was confused per the daughter. She was coherent but was not
making perfect sense in her answers (no garbling of the speech). She was answering somewhat appropriately but not per her norm, and some of the things she was saying did not make as much sense to the daughter. No episodes per the daughter or the
patient of amaurosis, unilateral numbness or weakness, full on aphasia. Although the daughter notes some difficulty at times expressing certain words. This persisted through Thursday, and then Thursday morning patient's daughter came to see her and
noted that symptoms are persisting. She took her to an urgent care. And subsequently secondary to persistent symptoms brought her to the hospital. She still notes that patient is not at her baseline.
Cardiovascular risk factors include history of atrial fibrillation, hypertension, hyperlipidemia, diabetes. Denies any tobacco use. No coronary artery disease. No history of peripheral arterial disease.
On exam/she is awake and alert. Head is normocephalic and atraumatic. Eyes are anicteric. Neck is soft without jugular venous distention. 2+ carotid pulsation bilaterally. No facial asymmetry is appreciated. Neurologically moves all
extremities reasonably with equal bilateral upper and lower extremity strength. Diffusely slightly weaker and also coordination diffusely slightly off (when I asked her to do certain movements, she hesitates and/or does not do it correctly
initially). Speech is fluent.
Abdomen is soft, nondistended, nontender. Lower extremity with 2+ femoral, popliteal, pedal pulses palpable bilaterally.
CT angiogram images reviewed. To my interpretation the left carotid bulb with heavy eccentric plaque, then extending into the internal carotid artery with heavy soft plaque on the proximal internal carotid artery (with eccentric calcified plaque)
resulting in severe focal stenosis of the internal carotid artery. About 2 cm beyond the origin the artery normalizes. MRI images completed, report pending.
Past Medical History
Past Medical History: Other (atrial fibrillation, hypertension, hyperlipidemia, hypothyroidism, diabetes , heart failure)
Past Surgical History: Other (right hip replacement, arthroscopic surgery bilateral knees, left breast lumpectomy, thyroid radiation)
Social History
Tobacco: Non-Smoker
Alcohol: Occasional
Drug: None
Personal:
Living: Alone
Employment: Retired
Family History
Family History: Reviewed & Not Pertinent
Allergies / Home Medications
Allergy/AdvReac Type Severity Reaction Status Date / Time
clindamycin Allergy CDIFF Verified 10/24/24 21:47
�Medication �Instructions �Recorded �Confirmed �Type
apixaban 5 mg tablet (Eliquis) 5 mg PO BID 12/19/21 10/24/24 History
levothyroxine 125 mcg tablet 125 mcg PO DAILY 12/19/21 10/24/24 History
metformin 500 mg tablet,extended 2,000 mg PO DAILY 12/19/21 10/24/24 History
release 24 hr
torsemide 20 mg tablet 20 mg PO QPM 01/01/22 10/24/24 History
bisoprolol fumarate 5 mg tablet 5 mg PO BID 10/24/24 10/25/24 History
empagliflozin 10 mg tablet 10 mg PO DAILY 10/24/24 10/24/24 History
(Jardiance)
rosuvastatin 10 mg tablet (Crestor) 10 mg PO DAILY 10/24/24 10/24/24 History
Review of Systems
-
History Source: Patient and Family
All other systems: Negative unless noted
Constitutional: Reports No Symptoms
EENT: Reports No Symptoms
Respiratory: Reports No Symptoms
Cardiac: Reports No Symptoms
Vascular: Denies Leg Pain / Claudication
Abdomen/GI: Reports No Symptoms
: Reports No Symptoms
Musculoskeletal: Reports No Symptoms
Neurological: Reports Other (confusion)
Physical Exam
Vital Signs
Temp Pulse Resp BP Pulse Ox
98.1 F 77 18 135/68 95
10/26/24 07:35 10/26/24 07:35 10/26/24 07:35 10/26/24 07:35 10/26/24 07:35
Lab Results
10/26/24 06:00
10/26/24 06:00
Troponin I 0.013 ng/ml 10/24/24 17:09
Mch-C-Hkoeqmohxls Pept 2430 pg/ml 10/24/24 17:09
Physical Exam
General: No Apparent Distress
HEENT: Normocephalic and Atraumatic
Respiratory: Non Labored Respirations
Cardiac: Negative JVD
GI: Soft and Non Tender
Musculoskeletal: No Clubbing, No Cyanosis and No Edema
Skin: Warm
Neuro: Awake, Alert and Oriented
Psych: Calm
Assessment / Plan
-
Plan/ Severe left cervical internal carotid artery proximal stenosis. It is unclear to me whether the symptoms she had represent a focal neurologic event. They are not typical of a focal neurologic event as she had nonfocal symptoms. Therefore I
am not sure that her symptoms are resultant from this left carotid stenosis. In that case it would be an asymptomatic high-grade left carotid stenosis and an 84-year-old female. We could discuss in the outpatient setting then risk/benefits of
revascularization versus continued surveillance. If however her MRI shows any acute infarcts, or neurology team feels that this was asymptomatic carotid related event, and she would benefit from inpatient carotid revascularization (likely left
carotid endarterectomy, alternatively left TCAR). Will await MRI report and neurology determination. If felt to be symptomatic and recommendation for revascularization, likely plan revascularization tomorrow. If felt to be asymptomatic carotid
stenosis, and her symptoms are related to other etiology or a systemic cause, then we will likely arrange for outpatient follow-up.
Data Reviewed
-
CT Scan: Discussed with Patient
Labs: Labs Reviewed by me
--- NOTE | 2024-10-26 10:30 | W.PN.NEURO.1 ---
Today's Communication / Plan
-
.
Subjective/Objective
Subjective Data
Date of Service: October 26, 2024
Neurology follow-up note.
Ms. Cavazos continues to have expressive aphasia. Brain MRI showed an acute left thalamic with extension to IC infarct.
Blood pressure has been normal.
LDL�94, hemoglobin A1c�7.3
TTE-interatrial septum is intact with no evidence of shunting by color flow Doppler. No intracardiac mass or thrombus formation seen.
PMH: A-Fib, HTN, PSVT, DLP, DM, h/o hyperthyroidism(s/p RT), hypothyroidism, OA, Varicose veins of bilateral lower extremities, gout
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
FH:mother-AD in her late 90s
All:Clindamycin
ROS: Negative for headache, sensory or motor deficits.
General: Well developed. In no acute distress.
Cardio: Regular rate and rhythm without murmur. Extremities are without cyanosis or edema.
Neuro:
Mental Status: Alert, oriented to name, person. Expressive greater than receptive aphasia. Follows simple requests. Impaired attention, comprehension, calculation
Cranial Nerves: Pupils are equally round, surgical. EOMs full. Blink to threat bilaterally. No ptosis. No nystagmus. V1-V3 intact to light touch and pinprick bilaterally, symmetric. Face symmetric. Normal hearing AU. The palate elevated
well. SCMs and traps 5/5. Tongue midline. No dysarthria.
Motor: No pronator or leg drift.Impaired FFM on the R
Reflexes: Negative Pritchett's and plus bilaterally
Sensory: Limited exam due to poor attention
Coordination: No dysmetria or tremor.
Gait: deferred
Assessment and Plan:
I. Acute L NURSE CASE MANAGER/New stroke with mixed transcortical aphasia. Likely etiology�small vessel disease versus artery to artery embolism versus cardioembolic.
II. Severe left ICA stenosis, likely asymptomatic
III. Paroxysmal A-fib. Unintentional Eliquis skipping.
-Continue Telemetry monitoring
-Avoid cerebral hypoperfusion given L ICA stenosis
-Continue aspirin 81 mg once a day.
-Restart Eliquis on 10/27/2024
-Continue Lipitor 40 mg QHS.
-Vascular surgery consult
-Speech therapy
-general distillery worker consult.
-DVT prophylaxis.
-The case was discussed with patient's daughter
-Outpatient neurology follow-up
I personally reviewed all radiology and labs along with past medical records pertinent to current medical problems. Total time spent in patient care is 40 minutes.
Thank you for allowing us to participate in the care of this patient. Please do not hesitate to contact us with any questions or concerns.
Objective Data
Vital Signs
Temp Pulse Resp BP Pulse Ox
36.7 C 77 18 135/68 95
10/26/24 07:35 10/26/24 07:35 10/26/24 07:35 10/26/24 07:35 10/26/24 07:35
Lab Results
10/26/24 06:00
10/26/24 06:00
PT 13.0 Sec (11.4-14.6) 10/25/24 05:56
INR 0.95 10/25/24 05:56
APTT 23.4 Sec (23.4-35.0) 10/25/24 05:56
Sodium 139 mmol/L (135-145) 10/26/24 06:00
Potassium 4.2 mmol/L (3.5-5.1) 10/26/24 06:00
BUN 27 mg/dl (7-17) H 10/26/24 06:00
Glucose 155 mg/dl (70-99) H 10/26/24 06:00
Calcium 9.6 mg/dl (8.4-10.2) 10/26/24 06:00
Cxc-G-Aommxfzlunj Pept 2430 pg/ml 10/24/24 17:09
LDL Cholesterol, Calc 94 mg/dl 10/25/24 05:56
Vitamin B12 858 pg/ml (928-930) 10/25/24 05:56
Patient Allergies
clindamycin Allergy (Verified 10/24/24 21:47)
CDIFF
Vital Signs and Labs
-
Vital Signs and Labs:
Vital Signs
Temp Pulse Resp BP Pulse Ox
36.7 C 77 18 135/68 95
10/26/24 07:35 10/26/24 07:35 10/26/24 07:35 10/26/24 07:35 10/26/24 07:35
Lab Results
10/26/24 06:00
10/26/24 06:00
PT 13.0 Sec (11.4-14.6) 10/25/24 05:56
INR 0.95 10/25/24 05:56
APTT 23.4 Sec (23.4-35.0) 10/25/24 05:56
Sodium 139 mmol/L (135-145) 10/26/24 06:00
Potassium 4.2 mmol/L (3.5-5.1) 10/26/24 06:00
BUN 27 mg/dl (7-17) H 10/26/24 06:00
Glucose 155 mg/dl (70-99) H 10/26/24 06:00
Calcium 9.6 mg/dl (8.4-10.2) 10/26/24 06:00
Vyp-H-Daufllkrolw Pept 2430 pg/ml 10/24/24 17:09
LDL Cholesterol, Calc 94 mg/dl 10/25/24 05:56
Vitamin B12 858 pg/ml (466-391) 10/25/24 05:56
Medications
-
Medications:
Generic Name Dose Route Start Last Admin
Trade Name Freq PRN Reason Stop Dose Admin
Acetaminophen 650 mg 10/24/24 22:40
Acetaminophen 325 Mg Tablet PO 11/21/24 22:39
Q4HPRN PRN
RODRIGUEZ, mild pain, or temp >100.4F
Aspirin 81 mg 10/25/24 08:00 10/26/24 09:53
Aspirin 81 Mg Chewable Tablet PO 11/22/24 07:59 81 mg
DAILY SARAH Administration
Atorvastatin Calcium 40 mg 10/26/24 18:00
Atorvastatin (Lipitor) 40 Mg Tablet PO 11/23/24 17:59
QPM SARAH
Bisoprolol Fumarate 2.5 mg 10/25/24 08:00 10/26/24 09:53
Bisoprolol Fumarate (Zebeta) 5 Mg Tablet PO 11/22/24 07:59 2.5 mg
DAILY SARAH Administration
Dextrose 12.5 grams 10/24/24 22:40
Dextrose 50% (0.5 Grams/Ml) 50 Ml Syringe IV 11/21/24 22:39
[id number] PRN
hypoglycemia
Protocol
Glucagon 1 mg 10/24/24 22:40
Glucagon 1 Mg Vial IM 11/21/24 22:39
PRN PRN
hypoglycemia
Protocol
Hydralazine HCl 5 mg 10/25/24 06:27 10/25/24 09:27
Hydralazine 20 Mg/Ml Vial IV 11/22/24 06:26 5 mg
Q4HPRN PRN Administration
sbp>170
Insulin Aspart 0 units 10/25/24 07:30 10/25/24 17:46
Insulin Aspart Low Resistance 300 Units/3 Ml Pen.Injctr SC 11/22/24 07:29 Not Given
AC SARAH
Protocol
Levothyroxine Sodium 125 mcg 10/25/24 06:00 10/26/24 04:32
Levothyroxine 125 Mcg Tablet PO 11/22/24 05:59 125 mcg
DAILY @ [facility] Administration
Sodium Chloride 0 flush 10/24/24 23:00
Sodium Chloride 0.9% (Flush) Syringe IV 11/21/24 22:59
PER PROTOCOL SARAH
Torsemide 20 mg 10/25/24 18:00 10/25/24 17:12
Torsemide 20 Mg Tablet PO 11/22/24 17:59 20 mg
QPM SARAH Administration
Home Medications
-
Home Medications
apixaban 5 mg tablet (Eliquis) 5 mg PO BID 12/19/21
levothyroxine 125 mcg tablet 125 mcg PO DAILY 12/19/21
metformin 500 mg tablet,extended release 24 hr 2,000 mg PO DAILY 12/19/21
torsemide 20 mg tablet 20 mg PO QPM 01/01/22
bisoprolol fumarate 5 mg tablet 5 mg PO BID 10/24/24
empagliflozin 10 mg tablet (Jardiance) 10 mg PO DAILY 10/24/24
rosuvastatin 10 mg tablet (Crestor) 10 mg PO DAILY 10/24/24
[2024-10-26] MEDS: NOVOLOG FLEXPEN-LOW RESISTANCE 1 UNITS SC ×3 (10:46→17:57)
--- NOTE | 2024-10-26 12:02 | W.PN.UPDATE ---
Update Note
Progress Note Update
MRI report reviewed. Left thalamic acute infarct noted. Discussed via Adrian text with neurologist. She feels that this was likely not attributable to carotid plaque based on thalamic perfusion. Therefore she feels that this is an asymptomatic
left carotid artery stenosis. Therefore will not pursue urgent carotid endarterectomy or carotid revascularization. Will follow-up in the outpatient setting. Communicated with hospitalist.
[2024-10-26 12:39] LABS: Glucose - Point of Care 195 mg/dl (70-99)
--- NOTE | 2024-10-26 15:30 | CM ---
Addendum entered by Yudelka Gurrola RN 10/26/24 15:40:
Spoke with [facility] . She will check on bed availability .
Original Note:
Spoke with Zehra regarding acute rehab [facility].
As per Zeh[facility] has no beds.
Spoke with pt and dgt at bedside about above. They requested [facility] acute rehab .
Referral placed in care port.
[facility] [place] .
--- NOTE | 2024-10-26 15:42 | W.PN.HOSP.TC ---
Today's Communication/Plan
-
Discharge planning
Assessment / Plan
Assessment / Plan
84-year-old female with mental status change. Daughter was with pt Thursday and Thursday until Thursday
Patient was fine per daughter. She got confused after that. No fevers. Daughter does endorse that patient at times forgets to take the Eliquis.
Head CT-focal areas of decreased density suggestive of old areas of infarction. Subacute not completely excluded.
MRI-1.6 cm acute infarct in the anterior margin of the left thalamus and genu of the left internal capsule. Chronic lacunar infarcts in the right maher radiator and right caudate head. Punctate right periventricular chronic microhemorrhage.
CTA-There is large volume partially calcific atherosclerotic plaque at the left carotid bifurcation extending into the origin of the left internal carotid artery associated with approximately 85% stenosis of the left internal carotid artery at its
origin
There is moderate partially calcific atherosclerotic plaque at the right carotid bifurcation associated with less than 50% stenosis of the right internal carotid artery at its origin
There is moderate partially calcific atherosclerotic plaque at the cavernous segments of both internal carotid arteries associated with near 70% stenosis bilaterally
The A1 segment of the left anterior cerebral artery is hypoplastic and the remainder of the left anterior cerebral artery fills predominantly via patent anterior communicating artery
There is 17 mm probably old lacunar infarct at the globus pallidus and genu of the internal capsule on the left and a 10 mm probably old lacunar infarct in the head of the caudate on the right.
CVS: S1-S2 normal
Chest: rales right base
Abdomen: Soft, NT / Bowel sounds present
Extremities: No edema, normal pulses
PEDIATRIC ALLERGIST: Very confused. She is aware that she is at [facility] but does not know the month or year. Speech abnormality noted normal motor exam. No facial droop noted by me
# Change in mental status/TME
Likely secondary to CVA
Discussed with vascular and neurology.
Neurology does not feel that carotid stenosis is causing the stroke which is more like a small vessel disease therefore no carotid intervention planned during this hospitalization.
Discussed this with patient's daughter at bedside. She is aware that patient needs to follow-up as outpatient with vascular for further interventions.
Physiatry consulted for acute rehab referral
Case management also made aware to look for acute versus SNF referrals.
Per discussion with neurology Eliquis can be restarted tomorrow
Eliquis to be restarted tomorrow. Continue statin
# Atrial fibrillation
History of ablations in the past
Monitor on telemetry
Holding Eliquis with acute stroke
Eliquis can be restarted tomorrow
# Hypertension-continue Bisoprolol
# Hyperlipidemia-continue Rosuvastatin
# Hypothyroidism-continue Synthroid
History of radiation
# Diabetes-Jardiance and metformin
Accu-Cheks with sliding scale coverage
# Heart failure-chronic HFpEF
Card- Dr. Zehra Davison
Daily weights
Continue Torsemide, Bisoprolol, Jardiance
# Mild MR and TR
# History of SVT
# History of Kawasaki's disease
# DVT prophylaxis-SCDs
# DNR
Discussed with nursing
Spoke to patient's daughter and updated at bedside. All questions answered
Discussed with vascular
Discussed with case management
Discussed with neurology
Time spent over 50 minutes
Anticipated Discharge: Within 24 hours
Subjective/Interval History
-
Date of Service: October 26, 2024
Objective Data
-
Labs:
Laboratory Results
10/26/24
06:00
WBC 3.9 L
Hgb 12.8
Hct 39.1
Plt Count 221
Sodium 139
Potassium 4.2
Chloride 102
Carbon Dioxide 27
BUN 27 H
Creatinine 1.0
Glucose 155 H
Calcium 9.6
Vital Signs:
Vital Signs
Temp Pulse Resp BP Pulse Ox
98.3 F 58 18 116/56 95
10/26/24 15:03 10/26/24 15:03 10/26/24 15:03 10/26/24 15:03 10/26/24 15:03
I&O
10/25/24 10/26/24 10/27/24
06:59 06:59 06:59
Intake Total 800 / 800
Balance 800 / 800
[2024-10-26 16:30] LABS: Glucose - Point of Care 150 mg/dl (70-99)
[2024-10-26] MEDS: DEMADEX 20 MG PO (17:56)
[2024-10-26] MEDS: LIPITOR 40 MG PO (17:57)
--- NOTE | 2024-10-26 18:56 | CON.MD ---
Consultation - Medical
-
Referring Provider:�Dr. Teresita Smith
Chief Complaint:�Stroke
�
History of Present Illness:�84-year-old right-handed female with PMH (as below) [facility] with altered mental status noted by her daughter. CT of the head noting multiple areas of
decreased density consistent with old or subacute stroke. Patient takes Eliquis for atrial fibrillation with occasionally but Internal. She was independent with her own finances and driving locally. Echocardiogram with EF 57% and mild concentric
LVH. CT angiogram with severe left cervical internal carotid artery proximal stenosis. Seen by vascular, unclear if stenosis is related to a stroke that would be related to this. There on MRI head:1.6 cm acute infarct in the anterior margin of
the left thalamus and genu of the left internal capsule. Chronic lacunar infarcts in the right maher radiator and right caudate head. Punctate right periventricular chronic microhemorrhage.. Neurology did not feel that this was related to
stenosis and so urgent carotid endarterectomy or carotid revascularization was not pursued. Eliquis held initially with acute stroke but can be resumed on 10/27 per notes. Had ablations in the past.
Past Medical History:�Atrial fibrillation, HTN, HLD, hypothyroidism, diabetes, chronic heart failure with preserved ejection fraction, gout, varicose veins of bilateral lower extremities, OA, Kawasaki's disease, SVT, mild mitral and tricuspid
regurgitation
Procedure History:�Right hip replacement, bilateral knee arthroscopic surgeries, left breast lumpectomy, thyroid radiation, cataract surgery, D&C
Family History:�Mother with Alzheimer's disease, father with coronary disease, sister with type 1 diabetes
�
Social History:�
Functional Level Premorbidly:�Independent with all activities�
Functional Level Currently:�Min assist for bed mobility and supervision for grooming. Significant expressive aphasia. Min assist for transfers, min assist ambulating 18 feet with rolling walker.
�
Tobacco:�Denies�
Alcohol:�Occasional
Drug use:�Denies�
�
Lives with:�Alone at independent living
24-hour assistance available:�No
Number of floors:�1
# steps to enter:�0
Driving:�Yes
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
�
Allergies:�
Allergy/AdvReac Type Severity Reaction Status Date / Time
clindamycin Allergy CDIFF Verified 10/24/24 21:47
�
Review of Systems:�Limited with aphasia
Constitutional: (x) Normal _
Eye: (x) Normal _
Ear/Nose/Throat: (x) Normal _
Respiratory: (x) Normal _
Cardiovascular: (x) Normal _
Gastrointestinal: (x) Normal _
Genitourinary: (x) Normal _
Musculoskeletal: (x) abNormal _chronic back and joint pains
Integumentary: (x) Normal _
Neurologic: (x) Normal _
Psychiatric: (x) Normal _
Endocrine: (x) Normal _
Hematologic/Lymphatic: (x) Normal _
Allergic/Immunologic: (x) Normal _
�
Medications:�
Active Current Visit Medication List
Category Date Time Status
Acetaminophen [Tylenol] Med 10/24/24 22:40 Active
650 mg PO Q4HPRN PRN
Aspirin Chewable [Low Strength Aspirin] Med 10/25/24 08:00 Active
81 mg PO DAILY
Atorvastatin [Lipitor] Med 10/26/24 18:00 Active
40 mg PO QPM
Bisoprolol Fumarate [Zebeta] Med 10/25/24 08:00 Active
2.5 mg PO DAILY
Dextrose 50%-Water [Dextrose 50% Syringe] Med 10/24/24 22:40 Active
12.5 grams IV [id number] PRN
Flush (0.9% Sodium Chloride) [Flush (Nss)] Med 10/24/24 23:00 Active
See Dose Instructions IV PER PROTOCOL
Glucagon [GlucaGen] Med 10/24/24 22:40 Active
1 mg IM PRN PRN
Insulin Aspart Corrective Low [Novolog Flexpen-Low Med 10/25/24 07:30 Active
Resistance]
See Protocol SC AC
Levothyroxine [Synthroid] Med 10/25/24 06:00 Active
125 mcg PO DAILY @ 0600
Torsemide [Demadex] Med 10/25/24 18:00 Active
20 mg PO QPM
�
Vitals:�
Temp Pulse Resp BP Pulse Ox
98.3 F 58 18 116/56 95
10/26/24 15:03 10/26/24 17:56 10/26/24 15:03 10/26/24 17:56 10/26/24 15:03
Height 5 ft 8 in
Actual Weight 61.008 kg
Body Mass Index (BMI) 20.5
�
Physical Exam:�
General Appearance/Observation: Well-developed, well-nourished female in no apparent distress.�
Pain/Comfort Assessment: Denies�
Mood/Affect: Appropriate�
�
Integumentary/Operative Site:�
�� Pressure Ulcer Evaluation: Blanchable redness both heels
�
Eyes: Conjunctiva/Lids: normal���� Pupils: pupils equal round and reactive to light and Accommodation�
Ears/Nose/Throat: oral mucosa moist,� throat clear.������������ Lips/Teeth/Gums: normal�
Cardiovascular: Heart: regular, no murmur�
Pulses: dorsalis pedis 2+ bilaterally�
Respiratory: Respiratory Effort/Chest Expansion: normal������� Auscultation: Clear to auscultation bilaterally�
Gastrointestinal: abdomen not tender, no distension, normal abdominal bowel sounds
Genitourinary: No Flor�
Extremities:�Edema: None�Cyanosis: None�Trophic�changes: None
�
Neurology Exam:
Orientation: Alert, Oriented to self only, limited with expressive aphasia
Memory: Limited by expressive aphasia
Repetition: Expressive aphasia
Comprehension: Understands basic information, limited by expressive aphasia
Two step command: Impaired, can follow one-step commands
Naming: Impaired with aphasia
Cranial Nerves:
�� CNII:�Pupillary light reflex: Intact����Visual Field: Appears intact, limited with expressive aphasia
�� CN III, IV, : Extraocular muscles: Intact�
�� CN V:�Facial Sensation�at�Forehead: Intact,�Maxilla: Intact,�Mandible: Intact
�� CN VII:�Facial movement: Symmetric
�� CN VIII:�Hearing: Normal
�� CN IX/X:�Speech & swallow: Expressive aphasia,�Position of Uvula: Midline
�� CN XI:�Shoulder shrug: Symmetric
�� CN XII:�Tongue protrusion: Midline
Sensory:
�� Light touch: Appear intact in bilateral upper and lower extremities
�
Reflexes:
�� Biceps: 2+ bilaterally
�� Brachioradialis: 2+ bilaterally
�� Triceps: 2+ bilaterally
�� Patellar: 0 bilaterally
�� Achilles: 0 bilaterally
�� Babinski: Down going bilaterally
�� Clonus: None
�� Carmen: Negative bilaterally�
Cerebellar: Dysmetria/Ataxia: None on right, impaired on left
Musculoskeletal Motor: (Manual muscle scale 0-5)�
Muscle SA EF WE EE FF FA HF KE DF EHL PF
Right� 4 5 5 5 5 4 4 5 5 5
Left 4 5 5 5 5 4 4 5 5 5
�
Tone: Normal in all extremities�
Range of Motion: Passively within normal limits in all extremities�
�
Lab Results
Laboratory Data
10/26/24 06:00
10/26/24 06:00
PT 13.0 Sec (11.4-14.6) 10/25/24 05:56
INR 0.95 10/25/24 05:56
APTT 23.4 Sec (23.4-35.0) 10/25/24 05:56
Total Bilirubin 0.7 mg/dl (0.2-1.3) 10/24/24 12:36
AST 29 U/L (14-36) 10/24/24 12:36
ALT 33 U/L (0-35) 10/24/24 12:36
Alkaline Phosphatase 72 U/L (38-126) 10/24/24 12:36
Total Protein 7.0 g/dl (6.3-8.2) 10/24/24 12:36
Albumin 4.2 g/dl (3.5-5.0) 10/24/24 12:36
�
Diagnostic Results:�as per HPI�
�
Assessment
84 y/o R-handed F PMH (Atrial fibrillation, HTN, HLD, hypothyroidism, diabetes, chronic heart failure with preserved ejection fraction, gout, varicose veins of bilateral lower extremities, OA, Kawasaki's disease, SVT, mild mitral and tricuspid
regurgitation) with 1.6 cm acute infarct in the anterior margin of the left thalamus and genu of the left internal capsule with ADL, ambulatory, speech dysfunction.
Plan�
PM&R�PT/OT to increase independence with ADLs, improve balance, coordination, endurance, strength, mobility, community reintegration, decreased burden of care on others and family education.�
�
CVA: Secondary prophylaxis with aspirin and statin, resuming anticoagulation for A-fib. Blood pressure control (SBP less than 180 and diastolic less than 100 to participate with therapy for ischemic stroke). Continue to monitor neurologic status.�
Expressive aphasia: speech �
HTN: Torsemide 20 mg at night, bisoprolol 2.5 mg daily, monitor closely�
HLD: Statin�
Atrial fibrillation:�Plan to resume anticoagulation 10/27 per notes and rate control with bisoprolol.�������������������������������������������
DM II: Accu-Cheks, insulin sliding scale.�
Hypothyroidism: levothyroxine�
�
Psych: Psychology consult.� Monitor mood, medications as needed.�
Skin: monitor for pressure sores/rashes/lesions.�
Pain: acetaminophen as needed.�
Bowel: Colace and Senna, PRN bisacodyl.�
Bladder: Time void, PVRs, PRN straight cath.�
DVT Prophylaxis: Mechanical, plans to start on anticoagulation 10/27
Pulmonary: Incentive spirometry�
Safety: Continue to reinforce assistance with all transfers.�
Code Status:� DNR�per chart
Dispo�(date/plan/equipment needs): Home with family care.� Social history reviewed.�
Functional and Medical Goals:�Modified Independent with ADL�s, ambulation, transfers�
-A total of 60 minutes were spent with the patient preparing for the evaluation, obtaining history, performing examination and evaluation, counseling, data review, case management, care coordination, chromosomal disorders counselor, and EMR documentation.
Discharge Destination:�Acute inpatient rehabilitation
�
Thank you for allowing me to care for your patient. Please contact me with any questions or concerns.
[2024-10-26 21:31] LABS: Glucose - Point of Care 196 mg/dl (70-99)
[2024-10-27 03:54] VITALS: BP 131/68
[2024-10-27] MEDS: SYNTHROID 125 MCG PO (05:08)
[2024-10-27 06:00] VITALS: BMI 20.7
[2024-10-27 07:56] VITALS: BP 127/68
[2024-10-27 08:00] LABS: Glucose - Point of Care 148 mg/dl (70-99)
[2024-10-27] MEDS: ZEBETA 2.5 MG PO (08:22)
[2024-10-27] MEDS: LOW STRENGTH ASPIRIN 81 MG PO (08:22)
[2024-10-27] MEDS: NOVOLOG FLEXPEN-LOW RESISTANCE SC (08:22)
--- NOTE | 2024-10-27 11:28 | CM ---
Addendum entered by Yudelka Gurrola RN 10/27/24 14:35:
Received call from [facility] rehab bed is available today.Family confirmed they want a bed at [facility] . Pat [facility] notified of change of dc plan.
PT completed .
MD [facility] notified of dc plan
[facility]
report [phone]
fax [phone]
PLAN To [facility] acute rehab [place]
Original Note:
PT OT indicate [place]hab [place]
[facility] acute no bed available.
Family requested [facility].
Spoke with [facility] acute [facility] . She will check on bed availability.
OT and speech evals faxed to [facility] for review.
Requested PT see pt today .
Possible [facility] acute rehab today .
Son Gwyn will transport pt .
PLAN To [facility] acute rehab if approved.
[2024-10-27 11:51] VITALS: BP 119/53
[2024-10-27 12:37] LABS: Glucose - Point of Care 230 mg/dl (70-99)
[2024-10-27 12:39] VITALS: BP 121/50; PULSE 62; O2SAT 96
[2024-10-27] MEDS: NOVOLOG FLEXPEN-LOW RESISTANCE 2 UNITS SC (13:25)
--- NOTE | 2024-10-27 14:43 | W.PN.HOSP.TC ---
Addendum entered and electronically signed by Fransisco Gutierrez MD 10/27/24 15:05:
Bisoprolol dose decreased because of heart rate on the low side
Addendum entered and electronically signed by Fransisco Gutierrez MD 10/27/24 15:02:
Okay to stop aspirin per discussion with neurology
Original Note:
Today's Communication/Plan
-
discharge to [facility]
Assessment / Plan
Assessment / Plan
84-year-old female with mental status change. Daughter was with pt Thursday and Thursday until Thursday. Patient was fine per daughter. She got confused after that. No fevers. Daughter does endorse that patient at times forgets to take the Eliquis.
Head CT-focal areas of decreased density suggestive of old areas of infarction. Subacute not completely excluded.
MRI-1.6 cm acute infarct in the anterior margin of the left thalamus and genu of the left internal capsule. Chronic lacunar infarcts in the right maher radiator and right caudate head. Punctate right periventricular chronic microhemorrhage.
CTA-There is large volume partially calcific atherosclerotic plaque at the left carotid bifurcation extending into the origin of the left internal carotid artery associated with approximately 85% stenosis of the left internal carotid artery at its
origin
There is moderate partially calcific atherosclerotic plaque at the right carotid bifurcation associated with less than 50% stenosis of the right internal carotid artery at its origin
There is moderate partially calcific atherosclerotic plaque at the cavernous segments of both internal carotid arteries associated with near 70% stenosis bilaterally
The A1 segment of the left anterior cerebral artery is hypoplastic and the remainder of the left anterior cerebral artery fills predominantly via patent anterior communicating artery
There is 17 mm probably old lacunar infarct at the globus pallidus and genu of the internal capsule on the left and a 10 mm probably old lacunar infarct in the head of the caudate on the right.
CVS: S1-S2 normal
Chest: rales right base
Abdomen: Soft, NT / Bowel sounds present
Extremities: No edema
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 She is aware that she is at [facility] but does not know the month or year. Speech abnormality noted normal motor exam. No facial droop noted by me
# Change in mental status/TME
Likely secondary to CVA
Discussed with vascular and neurology.
Neurology does not feel that carotid stenosis is causing the stroke which is more like a small vessel disease therefore no carotid intervention planned during this hospitalization.
Discussed this with patient's daughter at bedside. She is aware that patient needs to follow-up as outpatient with vascular for further interventions.
Per discussion with neurology Eliquis can be restarted today
Eliquis to be restarted . Continue statin
# Atrial fibrillation
History of ablations in the past
Monitor on telemetry
# Hypertension-continue Bisoprolol
# Hyperlipidemia-continue Rosuvastatin
# Hypothyroidism-continue Synthroid
History of radiation
# Diabetes-Jardiance and metformin
Accu-Cheks with sliding scale coverage
# Heart failure-chronic HFpEF
Card- Dr. Zehra Davison
Daily weights
Continue Torsemide, Bisoprolol, Jardiance
# Mild MR and TR
# History of SVT
# History of Kawasaki's disease per chart
# DVT prophylaxis-SCDs
# DNR
Discussed with nursing
Spoke to patient's son and updated at bedside. All questions answered
Discussed with case management
More than 30 minutes spent in discharge including
Final examination of the patient
Summarizing hospital stay
Instructions for continuing care to all relevant caregivers
Preparation of discharge records, prescriptions, and referral forms
Total time spent (in minutes):
Time spent over 40 minutes for discharge
Anticipated Discharge: Today
Subjective/Interval History
-
Date of Service: October 27, 2024
Objective Data
-
Vital Signs:
Vital Signs
Temp Pulse Resp BP Pulse Ox
97.7 F 58 18 119/53 97
10/27/24 11:51 10/27/24 11:51 10/27/24 11:51 10/27/24 11:51 10/27/24 11:51
I&O
10/26/24 10/27/24 10/28/24
06:59 06:59 06:59
Intake Total 800 / 800 1440 / 1440
Balance 800 / 800 1440 / 1440
--- NOTE | 2024-10-27 15:02 | W.DS.TRANS ---
Addendum entered and electronically signed by Fransisco Gutierrez MD 10/27/24 17:25:
Dictation- [id number]
Original Note:
DC Summary - [facility]
-
Discharge Instructions:
Sleep Apnea Risk Low
Discharge Diagnosis/Procedures TME due to CVA
Acute CVA
Bilateral carotid artery stenosis
Atrial fibrillation
Hypertension
Hyperlipidemia
Hypothyroidism
Diabetes
Chronic HFpEF
Diet 2 Gram Sodium
Activity As tolerated,With assistance
Driving Restrictions No driving
Other Services OT,PT,ST
Instructions:
Stand-Alone Forms:
Changes to Home Medications: Yes
Discharge Medications:
DC Medications w/original date entered in [employer]
acetaminophen 325 mg tablet 650 mg (2 x 325 mg) PO Q4HPRN PRN RODRIGUEZ, mild pain, or temp >100.4F #0 tabs 10/27/24
apixaban 5 mg tablet (Eliquis) 5 mg PO BID Blood clot prevention/tx #0 tabs 10/27/24
atorvastatin 40 mg tablet 40 mg PO QPM High cholesterol #0 tabs 10/27/24
bisoprolol fumarate 5 mg tablet 2.5 mg (1/2 x 5 mg) PO BID Arrhythmia #0 tabs 10/27/24
empagliflozin 10 mg tablet (Jardiance) 10 mg PO DAILY Diabetes #0 tabs 10/27/24
levothyroxine 125 mcg tablet 125 mcg PO DAILY Thyroid #0 tabs 10/27/24
metformin 500 mg tablet,extended release 24 hr 1,000 mg (2 x 500 mg) PO BID Diabetes #0 tabs 10/27/24
torsemide 20 mg tablet 20 mg PO QPM Fluid retention/Swelling #0 tabs 10/27/24
Home Medication Changes
Metformin dose changed to twice a day
Bisoprolol dose decreased
Pending Results: No
== END 2024-10-27 16:09 | DRG 64 ==
LOC: 4 EAST ACU 19:36
PROVIDERS: Emergency Medicine; Nurse Practitioner Family; Physician Assistant; ADMITTING PHYSICIAN Hospitalist; ATTENDING PHYSICIAN Hospitalist; CONSULT PHYSICIAN Physical Medicine & Rehabilitation; CONSULT PHYSICIAN Psychiatry & Neurology Neurology; EMERGENCY PHYSICIAN Emergency Medicine; FAMILY PHYSICIAN Family Medicine; OTHER PHYSICIAN Nurse Practitioner Acute Care
DX: I63.9 Cerebral infarction, unspecified (principal); G92.8 Other toxic encephalopathy; I50.32 Chronic diastolic (congestive) heart failure; M30.3 Mucocutaneous lymph node syndrome [Kawasaki]; I47.10 Supraventricular tachycardia, unspecified; I65.23 Occlusion and stenosis of bilateral carotid arteries; I11.0 Hypertensive heart disease with heart failure; E78.5 Hyperlipidemia, unspecified; E03.9 Hypothyroidism, unspecified; E11.9 Type 2 diabetes mellitus without complications; Z79.01 Long term (current) use of anticoagulants; I48.0 Paroxysmal atrial fibrillation; I25.10 Atherosclerotic heart disease of native coronary artery without angina pectoris; Z86.73 Personal history of transient ischemic attack (TIA), and cerebral infarction without residual deficits; Z96.641 Presence of right artificial hip joint; Z82.0 Family history of epilepsy and other diseases of the nervous system; Z83.3 Family history of diabetes mellitus; Z82.49 Family history of ischemic heart disease and other diseases of the circulatory system; Z79.84 Long term (current) use of oral hypoglycemic drugs; Z66 Do not resuscitate; M10.9 Gout, unspecified; I83.93 Asymptomatic varicose veins of bilateral lower extremities; R47.01 Aphasia; Z79.82 Long term (current) use of aspirin; Z88.1 Allergy status to other antibiotic agents; Z79.890 Hormone replacement therapy; Z79.899 Other long term (current) drug therapy; Z11.52 Encounter for screening for COVID-19; Z92.3 Personal history of irradiation
CPT/HCPCS: 51701; 70450; 70496; 70498; 70551; 71046; 80048; 80053; 80061; 81003; 82607; 82962; 83036; 83880; 84443; 84484; 85025; 85027; 85610; 85652; 85730; 86850; 86900; 86901; 87502; 87811; 92523; 92610; 93005; 93306; 93880; 97116; 97163; 97166; 97530; 97535; 99285; Q9967